=== PATIENT | male | born 1995 ===

== ENCOUNTER 2019-06-07 22:11 | Emergency (ER) | payer BC ==
[2019-06-07 22:21] VITALS: BP 125/79; PULSE 72; TEMP 99.3; BMI 24.3
[2019-06-07] MEDS ORDERED: IBUPROFEN 600 MG TABLET (FP) PO ONE ×2 (22:23→22:26)
--- NOTE | 2019-06-07 22:52 | PDOC ---
History of Present Illness - General Chief Complaint: Injury Stated Complaint: RT WRIST PAIN Time Seen by Provider: 06/07/19 22:20 History Source: Patient Exam Limitations: No Limitations - History of Present Illness Initial Comments: 06/07/19 22:24 This is a 23-year-old male who comes in complaining of right hand pain. Patient accidentally dropped a heavy object on the dorsum of his right hand. Patient came in immediately and did not take anything for the pain. Patient otherwise denies any other injuries. Allergies: as per nursing notes Past Medical History: none Social history: Lives with family. No smoking. No alcohol. No illicit drugs. Surgical history: None General: No fevers or chills, no weakness, no weight loss HEENT: No change in vision. No sore throat,. No ear pain CardioVascular: no chest discomfort. No shortness of breath Respiratory:No cough, or wheezing. Gastrointestinal: no nausea, vomiting, diarrhea or constipation, No rectal bleeding Genitourinary: No dysuria, hematuria, or frequency Musculoskeletal: Right hand injury Neurologic: No headache, vertigo, dizziness or loss of consciousness Psychiatric: nor depression Skin: No rashes or easy bruising Endocrine: no increased thirst or abnormal weight change Allergic: no skin or latex allergy All other systems reviewed and normal GENERAL: The patient is awake, alert, and fully oriented, in no acute distress. HEAD: Normal with no signs of trauma. EYES: Pupils equal, round and reactive to light, extraocular movements intact, sclera anicteric, conjunctiva clear. EXTREMITIES right hand: There is ecchymosis and swelling over the fourth and fifth metatarsal carpals with tenderness on palpation. Neurovascular distal is intact. NEUROLOGICAL: Normal speech, normal gait. PSYCH: Normal mood, normal affect. SKIN: Warm, Dry, normal turgor, no rashes or lesions noted. X-ray shows a displaced fracture of the distal fifth metacarpal. Consistent with a boxer's fracture Procedure note: An OCL ulnar gutter splint was placed patient tolerated well patient put in a sling neurovascular exam post-splint application was intact Assessment and plan: This is a 23-year-old male with a displaced boxer's fracture that was put in a splint and a sling patient given or the follow-up. Patient discharged Past History - Past Medical History Allergies/Adverse Reactions: Allergies Allergy/AdvReac Type Severity Reaction Status Date / Time No Known Allergies Allergy Unverified 06/07/19 22:12 Home Medications: Ambulatory Orders NK [No Known Home Medication] 06/07/19 - Suicide/Smoking/Psychosocial Hx Smoking History: Never smoked *Physical Exam - Vital Signs Last Vital Signs Temp Pulse Resp BP Pulse Ox 99.3 F 72 16 125/79 100 06/07/19 22:13 06/07/19 22:13 06/07/19 22:13 06/07/19 22:13 06/07/19 22:13 *DC/Admit/Observation/Transfer Diagnosis at time of Disposition: Boxers fracture Qualifiers: Encounter type: initial encounter Fracture type: closed Qualified Code(s): S62.339A - Displaced fracture of neck of unspecified metacarpal bone, initial encounter for closed fracture - Discharge Dispostion Disposition: HOME Condition at time of disposition: Stable Decision to Admit order: No - Referrals Referrals: Abhinav Galvan MD [Staff Physician] - - Patient Instructions Additional Instructions: For the pain U can take Tylenol or Motrin. If he needed something stronger take Percocet one tablet every 4-6 hours as needed. Leave the splint in place and wear the sling while awake. Follow-up with an orthopedist if he needed an orthopedist Return to the emergency department immediately with ANY new, persistent or worsening symptoms. Continue any medications as previously prescribed by your physician. You should follow up with your primary doctor as soon as possible regarding today's emergency department visit. . Please make sure your doctor reviews the results of your emergency evaluation. Thank you for coming to the Emergency Department today for your care. It was a pleasure to see you today. Please note that your evaluation is INCOMPLETE until you follow-up with your doctor. - Post Discharge Activity
== END 2019-06-07 22:59 | disposition home or self-care (01) ==
LOC: FER 22:11
PROC: 2W3CX1Z Immobilization of Right Lower Arm using Splint (ICD-10-PCS; principal; 2019-06-07)
DX: S62.336A Displaced fracture of neck of fifth metacarpal bone, right hand, initial encounter for closed fracture (principal); W20.8XXA Other cause of strike by thrown, projected or falling object, initial encounter; Y93.9 Activity, unspecified; Y92.9 Unspecified place or not applicable
CPT/HCPCS: 73130-TC-RT-FY; 99281-25

== ENCOUNTER 2019-06-12 05:12 | Day surgery (SDC) | payer BC ==
[2019-06-08 13:44] VITALS: BMI 24.3
[2019-06-12] MEDS ORDERED: MIDAZOLAM HCL 2 MG/2 ML SINGLE DOSE VIAL ONE (15:05)
[2019-06-12] MEDS ORDERED: LIDOCAINE HCL 1%, 10 MG/ML (20ML VIAL) ONE (15:09)
[2019-06-12] MEDS ORDERED: BUPIVACAINE HCL/PF 0.5% (5 MG/ML) 30 ML VIAL IJ ONE (15:09)
[2019-06-12] MEDS ORDERED: ceFAZolin SODIUM 1 GM VIAL IVPB ONE (15:10)
--- NOTE | 2019-06-12 16:02 | HP ---
Satellite H - Chief Complaint Chief Complaint: right 5th mc fx - Past Medical History Allergies/Adverse Reactions: Allergies Allergy/AdvReac Type Severity Reaction Status Date / Time No Known Allergies Allergy Unverified 06/12/19 13:32 - Current Medications Current Medications: Home Medications Medication Instructions Recorded Multivitamin [Multiple Vitamins] 1 each PO DAILY 06/08/19 Hydrocodone/Acetaminophen 1 each PO Q6H #20 tablet MDD 4 06/12/19 [Hydrocodone-Acetamin 5-325 mg] Satellite Physical Exam - Physical Examination Vital Signs: Vital Signs Period Temp Pulse Resp BP Sys/Elizondo Pulse Ox Last 24 Hr 98.0 F-98.0 F 69-69 20-20 140-140/70-70 100 General Appearance: Well Nourished, Well Developed, Alert & Oriented x3 ENT: Clear Lung: Normal air movement Heart: Regular rate & rhythm Extremities: Other (+ swelling, + deformity, + ttp, decr rom, nvi, xrays show displaced and angulated 5th metacarpal fx) Neurological: Intact, Alert, Oriented Satellite Impression/Plan - Impression/Plan Impression: right displaced 5th metacarpal fx Operative Procedure: right 5th metacarpal CRPP/orif Date to be Performed: 06/12/19
[2019-06-12] MEDS ORDERED: PROPOFOL 20 ML ONE (16:15)
[2019-06-12] MEDS ORDERED: PROMETHAZINE HCL 25 MG/1 ML VIAL IVPUSH PRN (16:26)
[2019-06-12] MEDS ORDERED: ONDANSETRON 4 MG/2 ML VIAL IVPUSH PRN (16:26)
[2019-06-12] MEDS ORDERED: oxyCODONE HCL 5 MG TABLET PO PRN (16:26)
[2019-06-12] MEDS ORDERED: LACTATED RINGERS SOLUTION 1,000 ML IV SCH (16:30)
--- NOTE | 2019-06-12 16:33 | OP ---
Operative Note - Note: Operative Date: 06/12/19 Pre-Operative Diagnosis: right 5th metacarpal fracture Operation: ORIF right 5th metacarpal Implants: 2 x 0.062" k-wires Surgeon: Abhinav Galvan Anesthesiologist/LUMBER STACKER: Clare Abbasi Anesthesia: General, Local Estimated Blood Loss (mls): 0 Drains, Volume Out (mls): 0 Blood Volume Replaced (mls): 0 Fluid Volume Replaced (mls): 500 Operative Report Dictated: Yes
[2019-06-12 18:01] VITALS: TEMP 98
[2019-06-12] MEDS ORDERED: oxyCODONE HCL 5 MG TABLET ONE (18:23)
[2019-06-12 19:41] VITALS: BP 114/75; PULSE 80
--- NOTE | 2019-06-12 19:44 | OP ---
DATE OF OPERATION: 06/12/2019 PREOPERATIVE DIAGNOSIS: Displaced, angulated right 5th metacarpal fracture. POSTOPERATIVE DIAGNOSIS: Displaced, angulated right 5th metacarpal fracture. PROCEDURE: Open reduction internal fixation, right 5th metacarpal. SURGEON: Abhinav Stewart MD STRUCTURAL RIGGER: None. ANESTHESIA: LMA anesthesia with right interscalene block. DRAINS: None. COMPLICATIONS: None. SPECIMENS: None. BLOOD LOSS: None. BLOOD GIVEN: None. FLUID REPLACEMENT: 500 mL PlasmaLyte. INDICATIONS: This patient is a 23-year-old male with a preoperative diagnosis of right 5th metacarpal fracture. After understanding the potential risks, complications, alternatives, and benefits to surgery versus nonsurgical treatment, the patient elected to undergo this procedure. DESCRIPTION OF PROCEDURE: The patient was brought to the operating room. Peripheral IV place. IV sedation given, 2 g of IV Ancef were given. LMA anesthesia was induced. He was relaxed. The right upper extremity was prepped and draped in the sterile fashion. Several attempts were made to do a closed reduction and percutaneous pinning using the very small K-wires. The distal fragment was so small by flexing the 5th finger it flexed the distal fragment. It was not controllable. Also unable to get an adequate starting point to use the intramedullary screw; and therefore, the right upper extremity was then elevated, exsanguinated with an Esmarch bandage. Tourniquet inflated to 250 mmHg. A small 1-inch incision was made over the 5th metacarpal head. Subcutaneous hemostasis was achieved with a bipolar cautery dissection done with Littler scissors. Great care was taken to preserve all crossing neurovascular structures and extensor tendons. A Weitlaner retractor was placed into the wound. I was unable to directly visualize the 5th metacarpal head and then used the 0.062 K-wire, put it on the radial condyle of the 5th metacarpal head, used it as a joystick, reduced it, and confirmed excellent intramedullary position in the AP, lateral, and oblique planes. Then confirmed there was an excellent reduction and did the same thing with another 0.062 K-wire in a retrograde fashion for more distal ulnar to a proximal radial direction. The crossing K-wires looked good. X-rays were taken documenting excellent position in all planes, and the position of the 5th metacarpal condylar surfaces were congruent. The area was copiously irrigated and washed out. Final x-rays taken. The K-wires were bent, cut, and green pin caps applied, 4-0 undyed Vicryl was used to close the deep dermal layer. Final skin reapproximation was done with single interrupted nylon sutures. The area was then washed and dried, covered with Xeroform gauze, 4 x 4 gauze, fluffs between the fingers, Webril, and a 5-inch Ortho-Glass was used to make an ulnar gutter splint more on the volar side, wrapped with a Hollis and Coban. Tourniquet was taken down after a total tourniquet time of 25 minutes. There were no complications during the case. The patient tolerated the procedure quite well. Was brought to the ambulatory recovery room in stable condition. ABHINAV STEWART M.D. [id number]
== END 2019-06-12 19:40 | disposition home or self-care (01) ==
LOC: JASU-SURG 05:12
PROVIDERS: ATTEND Orthopaedic Surgery
PROC: 0PSP04Z Reposition Right Metacarpal with Internal Fixation Device, Open Approach (ICD-10-PCS; principal; 2019-06-12 14:30)
DX: S62.306A Unspecified fracture of fifth metacarpal bone, right hand, initial encounter for closed fracture (principal); X58.XXXA Exposure to other specified factors, initial encounter; Y93.9 Activity, unspecified; Y92.9 Unspecified place or not applicable; Y99.9 Unspecified external cause status
CPT/HCPCS: 76000-TC-FY; 94760